=== PATIENT | female | born 1985 | race African-American/Black ===

== ENCOUNTER 2016-08-15 11:54 | Emergency (ER) | payer MEDICAID, OTHER ==
[~2016-08-15] VITALS: Ht 157.5 cm; Wt 65.9 kg
[~2016-08-15 11:54] MED LIST: IBUP-238 PO; MICRONOR PO; OXYC-360 PO; PRENTAB72 PO
[2016-08-15 11:56] VITALS: BP 141/96; PULSE 74; RESP 16; TEMP 97.6; O2SAT 100
[2016-08-15] MEDS ORDERED: ONDANSETRON ODT 4 MG TAB PO ONE (13:00)
[2016-08-15] MEDS ORDERED: diphenhydrAMINE HCL 25 MG CAP PO ONE (13:00)
--- NOTE | 2016-08-15 13:07 | PD ---
HPI Chief Complaint: Headache Time Seen by Provider: 13:00 Travel History International Travel<30 days: No Contact w/Intl Traveler<30days: No Traveled to known affect area: No History of Present Illness HPI 31-year-old female presents to the emergency department with 2 complaints. Her first complaint is headache 2 days. She says it all over. Reports it is a pounding sensation. Rates it 7/10. Has history of headaches and this is similar. Has tried Tylenol and ibuprofen with no relief. Aggravated by light. Denies phonophobia. Denies vomiting. Denies fever. Denies dysuria. Second complaint is low back pain 2 days. Has history of low back pain that is similar for the past 4 years. Denies injury. Denies straining or heavy lifting. Caprice, incontinence, saddle anesthesias. Denies IV drug use. Denies cancer. Denies fever, chills, nausea, vomiting. Denies paresthesias, loss of sensation, decreased range of motion, decreased strength to bilateral lower extremities. Has tried taking Tylenol and ibuprofen with no relief. Pain is aggravated with movement. Denies significant past medical history. No known allergies. No other modifying factors or associated signs and symptoms. PFSH Past Medical History Anemia: Yes Autoimmune Disease: No Blood Disorders: No Cancer: No Musculoskeletal: No Psychiatric: No Migraines: Yes PNEUMOCCOCAL Vaccine (Year): 2 ?: Not : 5 Para: 3 Miscarriage: 1 Social History Alcohol Use: No Tobacco Use: No Substance Use: No Allergies-Medications (Allergen,Severity, Reaction): Coded Allergies: No Known Allergies (Verified , 08/15/16) Reported Meds & Prescriptions Reported Meds & Active Scripts Active Pyridium (Phenazopyridine HCl) 100 Mg Tab 100 Mg PO Q8H PRN Ibuprofen 800 Mg Tab 800 Mg PO Q6HR PRN Keflex (Cephalexin) 500 Mg Cap 500 Mg PO Q12H 7 Days Reported [Micronor] 1 Tab PO DAILY Review of Systems Except as stated in HPI: all other systems reviewed are Neg Physical Exam Narrative GENERAL: Well-nourished, well-developed female patient, in no acute distress; sitting in a well lit room playing on her iPhone and talking to her friend SKIN: Warm and dry. HEAD: Atraumatic. Normocephalic. No facial droop noted. Tongue midline. EYES: Pupils equal and round at 3 mm with brisk reaction. No scleral icterus. No injection or drainage. PERRLA. EOMI. ENT: Mucosa pink and moist. Airway patent. NECK: Trachea midline. No lymphadenopathy. CARDIOVASCULAR: Regular rate and rhythm. No murmur appreciated. RESPIRATORY: No accessory muscle use. Clear to auscultation. Breath sounds equal bilaterally. GASTROINTESTINAL: Abdomen soft, non-tender, nondistended. Hepatic and splenic margins not palpable. Bowel sounds are active 4 quadrants. Bladder nontender and nondistended. MUSCULOSKELETAL: No obvious deformities. No clubbing. No cyanosis. No edema. BACK: No CVA tenderness NEUROLOGICAL: Awake and alert. Oriented 3. No obvious cranial nerve deficits. Motor grossly within normal limits. Normal speech. No ataxia. No mid -line drift. Moves all extremities. 5/5 strength to all extremities. PSYCHIATRIC: Appropriate mood and affect; insight and judgment normal. Data Data Last Documented VS Vital Signs Date Time Temp Pulse Resp B/P Pulse Ox O2 Delivery O2 Flow Rate FiO2 08/15/16 11:56 97.6 74 16 141/96 100 Room Air Orders Urinalysis - C+S If Indicated (08/15/16 13:00) Ketorolac Inj (Toradol Inj) (08/15/16 13:30) Ondansetron Odt (Zofran Odt) (08/15/16 13:00) Diphenhydramine (Benadryl) (08/15/16 13:00) Urine Culture (08/15/16 13:30) Labs Laboratory Tests Test 08/15/16 13:30 Urine Color YELLOW Urine Turbidity HAZY Urine pH 6.0 Urine Specific [place] 1.027 Urine Protein TRACE mg/dL Urine Glucose (UA) NEG mg/dL Urine Ketones NEG mg/dL Urine Occult Blood NEG Urine Nitrite NEG Urine Bilirubin NEG Urine Urobilinogen LESS THAN 2.0 MG/DL Urine Leukocyte Esterase LARGE Urine RBC 9 /hpf Urine WBC 27 /hpf Urine Squamous Epithelial 9 /hpf Cells Urine Bacteria MANY /hpf Urine Mucus MANY /lpf Microscopic Urinalysis Comment CULTURE INDICATED MDM Medical Decision Making Medical Screen Exam Complete: Yes Emergency Medical Condition: Yes Medical Record Reviewed: Yes Differential Diagnosis Acute headache, urinary tract infection, low back pain Narrative Course 31-year-old female with 2 complaints. First complaint is headache. She has history of headaches and this is consistent with her past headaches. Neuro exam is unremarkable. Her second complaint is low back pain. She has history of low back pain but symptoms are a little worse than normal. Toradol, Benadryl , Zofran administered in the ER. 1410: Urinalysis was signs of infection. Patient reports improvement in headache. Ibuprofen, Pyridium, Keflex prescribed for home. Patient is medically cleared and stable for discharge. Discussed reasons to return to the emergency department. Instructed patient to follow up with primary care provider. Patient agrees with treatment plan. The patients vital signs are stable and the patient is stable for outpatient follow-up and treatment. Patient discharged home, stable and in no acute distress. Diagnosis Primary Impression: Headache Qualified Code: R51 - Acute nonintractable headache, unspecified headache type Additional Impression: UTI (urinary tract infection) Qualified Code: N39.0 - Urinary tract infection without hematuria, site unspecified Referrals: Primary Care Physician Patient Instructions: Acute Headache (ED), General Instructions, Urinary Tract Infection in Women (ED) Departure Forms: Tests/Procedures, Work Release Enter return to work date: Aug 16, 2016 Additional Instructions: Ibuprofen or Tylenol as directed and as needed to reduce headache Get plenty of rest: do not over sleep rest and relax in a dark, quiet room as needed Place an ice pack on the back of her neck to reduce head pain as needed Keep a headache diary of what triggers her headaches and what treatment is most effective Avoid identifiable triggers Avoid smoking, alcohol and caffeine consumption Reduce stress Follow-up with primary care provider within 1-2 days Follow-up with neurology Return immediately to the emergency department with worsening symptoms Take antibiotics as prescribed and complete full course Take Pyridium for bladder spasms: Pyridium will turn your urine bright orange Drink plenty of fluids Maintain good personal hygiene Follow-up with primary care provider Return to the emergency department immediately with worsening of symptoms Med/Other Pt SpecificInfo: Prescription(s) given Scripts Phenazopyridine (Pyridium)100 Mg [id number] Mg PO Q8H PRN (DYSURIA) #20 TAB Ref 0 Prov:Allie Castellano HEEL VARNISHER 08/15/16 Ibuprofen 800 Mg [id number] Mg PO Q6HR PRN (PAIN) #30 TAB Ref 0 Prov:Allie Castellano HEEL VARNISHER 08/15/16 Cephalexin (Keflex)500 Mg [id number] Mg PO Q12H 7 Days Ref 0 Prov:Allie Castellano 08/15/16 Disposition: 01 DISCHARGE HOME Condition: Stable Allie Castellano Aug 15, 2016 13:07
[2016-08-15] MEDS ORDERED: KETOROLAC TROMETHAMINE 60 MG/2 ML (IM) VIAL IM ONE (13:30)
[2016-08-15 13:54] LABS: BACTERIA, URINE MANY /hpf; BLOOD, URINE NEG (NEG); COMMENT (UR) CULTURE INDICATED; CULTURE IF INDICATED CULTURE INDICATED; GLUCOSE,URINE NEG (NEG); KETONE, URINE NEG (NEG); MUCUS URINE MANY /lpf (OCC); NITRITE,URINE NEG (NEG); SQUAMOUS EPITHELIAL CELL URINE 9 /hpf (0-5); URINE COLOR YELLOW (YELLW/STRAW)
[2016-08-15] MEDS ORDERED: IBUP800T23 PO (14:06)
[2016-08-15] MEDS ORDERED: PHEN0.4T PO (14:06)
[2016-08-15] MEDS ORDERED: CEPH-460 PO (14:06)
== END 2016-08-15 14:38 | disposition home or self-care (01) ==
LOC: NEPB 11:54
DX: R51 Headache (principal); N39.0 Urinary tract infection, site not specified; D64.9 Anemia, unspecified
CPT/HCPCS: 81001; 87086; 96372; 99284; J1885

== ENCOUNTER 2016-09-15 15:16 | Emergency (ER) | payer MEDICAID ==
[~2016-09-15] VITALS: Ht 157.5 cm; Wt 70.0 kg
[~2016-09-15 15:16] MED LIST changes: +CEPH-460 PO; -IBUP-238 PO; +IBUP800T23 PO; -OXYC-360 PO; +PHEN0.4T PO; -PRENTAB72 PO
[2016-09-15 15:17] VITALS: BP 139/77; PULSE 70; RESP 14; TEMP 98.2; O2SAT 98
--- NOTE | 2016-09-15 15:56 | PD ---
HPI Chief Complaint: Cold / Flu Symptoms Time Seen by Provider: 15:53 Travel History International Travel<30 days: No Contact w/Intl Traveler<30days: No Traveled to known affect area: No History of Present Illness HPI Patient comes in complaining of sinus congestion headache ongoing for approximately 10 days. Patient states anytime her sinuses start acting up on her she gets headaches over frontal lobe like this. Patient denies anything making it better or worse. Patient states she's been drinking tea with honey with no improvement of her symptoms. Patient reports associated sore throat. Denies any fevers, nausea, vomiting, chest pain, cough, , abdominal pain, neck pain, or numbness or tingling anywhere. PFSH Past Medical History Anemia: Yes Autoimmune Disease: No Blood Disorders: No Cancer: No Musculoskeletal: No Psychiatric: No Migraines: Yes PNEUMOCCOCAL Vaccine (Year): 2 ?: Not LMP: DEPO : 5 Para: 3 Miscarriage: 1 Social History Alcohol Use: No Tobacco Use: No Substance Use: No Allergies-Medications (Allergen,Severity, Reaction): Coded Allergies: No Known Allergies (Verified , 08/15/16) Reported Meds & Prescriptions Reported Meds & Active Scripts Active Flonase Nasal [place] (Fluticasone Nasal [place]) 50 Mcg/Act [place] 100 Mcg EACH NARE DAILY Pyridium (Phenazopyridine HCl) 100 Mg Tab 100 Mg PO Q8H PRN Ibuprofen 800 Mg Tab 800 Mg PO Q6HR PRN Keflex (Cephalexin) 500 Mg Cap 500 Mg PO Q12H 7 Days Reported [Micronor] 1 Tab PO DAILY Review of Systems Except as stated in HPI: all other systems reviewed are Neg Physical Exam Narrative GENERAL: Well-developed, overly nourished, in no acute distress, and non-ill appearing. SKIN: Warm and dry. HEAD: Atraumatic. Normocephalic. EYES: Pupils equal and round. EOMI. No scleral icterus. No injection or drainage. ENT: No nasal bleeding or discharge. Mucous membranes pink and moist. Tympanic membranes are pearly nance bilaterally. Posterior pharynx erythematous without exudate. Uvula is midline. Patient reports tenderness to palpation or facial sinuses. NECK: Trachea midline. No cervical lymphadenopathy. Supple. No nuclear rigidity. CARDIOVASCULAR: Regular rate and rhythm. No murmur appreciated. RESPIRATORY: No accessory muscle use. No respiratory distress. Clear to auscultation. Breath sounds equal bilaterally. MUSCULOSKELETAL: No obvious deformities. No clubbing. No cyanosis. No edema. Full range of motion. NEUROLOGICAL: Awake and alert. No obvious cranial nerve deficits. Motor grossly within normal limits. Normal speech. PSYCHIATRIC: Appropriate mood and affect; insight and judgment normal. Data Data Last Documented VS Vital Signs Date Time Temp Pulse Resp B/P Pulse Ox O2 Delivery O2 Flow Rate FiO2 09/15/16 15:17 98.2 70 14 139/77 98 MDM Medical Decision Making Medical Screen Exam Complete: Yes Emergency Medical Condition: Yes Differential Diagnosis Allergic sinusitis, shows cyanosis, pharyngitis, upper respiratory infection, other Narrative Course Patient looks great, non-ill appearing. The patient is tolerating fluids and is well hydrated. Appears allergic sinusitis. No clinical evidence by history or evaluation to suspect infection, meningitis and/or sepsis. There was no evidence to suggest deep abscess or cavernous sinus involvement. I discussed with the patient, diagnosis, plan of care, medications and to follow up with the patients primary physician. The patient was instructed to return if the worsens in anyway, especially if not tolerating fluids, increased sinus pain or swelling, worsening headache, persistent fever, difficulty swallowing or breathing, or as needed. The patient agreed with plan. Patient in no obvious distress upon re-evaluation. Patient was asked if they wanted to speak to my attending, which the patient did not wish to do at this time. Any questions/concerns in reference to patient diagnosis/condition discussed and clarified prior to patient's discharge. Reinforced sheer importance of close follow up with patient's primary physician or primary care clinic. Instructed patient to return to ED immediately, if symptoms return/ worsen. Pt showed understanding of above instructions. Further instructions and recommendations were detailed in discharge paperwork. Pt ambulated without difficulty out of ED at discharge. Diagnosis Primary Impression: Sinusitis Qualified Code: J01.91 - Acute recurrent sinusitis, unspecified location Patient Instructions: General Instructions, Sinusitis (ED) Additional Instructions: Follow-up with your primary care physician and/or ENT in 3-5 days for reevaluation. Take all medication as prescribed. Use [id number] Claritin or Zyrtec or Benadryl for symptomatic relief. Follow instructions on the packaging. Return to the emergency department if symptoms get worse. Med/Other Pt SpecificInfo: Prescription(s) given Scripts Fluticasone Nasal [place] (Flonase Nasal [place])50 Mcg/Act [id number] Mcg EACH NARE DAILY #1 BOTTLE Ref 0 Prov:Terri Denise MD 09/15/16 Disposition: 01 DISCHARGE HOME Condition: Stable Neftaly Manley Sep 15, 2016 15:56
[2016-09-15] MEDS ORDERED: FLUT1SPR5 EACH NARE (15:57)
== END 2016-09-15 16:07 | disposition home or self-care (01) ==
LOC: NEPB 15:16
DX: J01.91 Acute recurrent sinusitis, unspecified (principal); Z86.2 Personal history of diseases of the blood and blood-forming organs and certain disorders involving the immune mechanism; Z86.69 Personal history of other diseases of the nervous system and sense organs
CPT/HCPCS: 99283

== ENCOUNTER 2016-11-11 20:32 | Emergency (ER) | payer MEDICAID ==
[~2016-11-11] VITALS: Ht 167.6 cm; Wt 70.0 kg
[~2016-11-11 20:32] MED LIST changes: +FLUT1SPR5 EACH NARE
[2016-11-11 20:35] VITALS: BP 131/92; PULSE 82; RESP 15; TEMP 99.1; O2SAT 100
[2016-11-11 21:37] VITALS: BP 131/82; PULSE 71; RESP 18; O2SAT 100
--- NOTE | 2016-11-11 22:32 | PD ---
HPI Chief Complaint: Chest Pain Time Seen by Provider: 21:57 Travel History International Travel<30 days: No Contact w/Intl Traveler<30days: No Traveled to known affect area: No History of Present Illness HPI The patient was seen and examined in the presence of the nurse. This patient complains of chest pain. Duration is 6 weeks. Location is center sternum. She gets one second sharp stabbing twinges. Reproducible with certain movements and also she reports she's been very anxious over the of 2 family members recently. Severity is mild. PFSH Past Medical History Anemia: Yes Autoimmune Disease: No Blood Disorders: No Cancer: No Musculoskeletal: No Psychiatric: No Immunizations Current: Yes Migraines: Yes Tetanus Vaccination: Unknown Influenza Vaccination: No PNEUMOCCOCAL Vaccine (Year): 2 ?: Not : 5 Para: 3 Miscarriage: 1 Social History Alcohol Use: No Tobacco Use: No Substance Use: No Allergies-Medications (Allergen,Severity, Reaction): Coded Allergies: No Known Allergies (Verified , 11/11/16) Reported Meds & Prescriptions Reported Meds & Active Scripts Active Review of Systems General / Constitutional: No: Fever Eyes: No: Drainage Cardiovascular: Positive: Chest Pain or Discomfort Respiratory: No: Cough Gastrointestinal: No: Vomiting Neurologic: No: Weakness Psychiatric: Positive: Anxiety Physical Exam Narrative GENERAL: Well-nourished, well-developed patient in no apparent distress. SKIN: Focused skin assessment reveals no rash and nodules. Skin is Warm and dry. HEAD: Atraumatic. Normocephalic. EYES: Pupils equal and round. No scleral icterus. No injection or drainage. ENT: No nasal bleeding or discharge. Mucous membranes pink and moist. NECK: Trachea midline. No JVD. CARDIOVASCULAR: Regular rate and rhythm. No murmur appreciated. RESPIRATORY: No accessory muscle use. Clear to auscultation. Breath sounds equal bilaterally. GASTROINTESTINAL: Abdomen soft, non-tender, nondistended. Hepatic and splenic margins not palpable. MUSCULOSKELETAL: No obvious deformities. No clubbing. No cyanosis. No edema. Does have some reproducible sternal tenderness NEUROLOGICAL: Awake and alert. No obvious cranial nerve deficits. Motor grossly within normal limits. Normal speech. PSYCHIATRIC: Appropriate mood and affect; insight and judgment normal. Data Data Last Documented VS Vital Signs Date Time Temp Pulse Resp B/P Pulse Ox O2 Delivery O2 Flow Rate FiO2 11/11/16 21:37 71 18 131/82 100 Room Air 11/11/16 20:35 99.1 MDM Medical Decision Making Medical Screen Exam Complete: Yes Emergency Medical Condition: Yes Medical Record Reviewed: Yes Differential Diagnosis Differential diagnosis includes OH, angina, pericarditis, pleurisy, GERD, anxiety. Narrative Course I have reviewed the patient's electronic medical record. I reviewed her EKG which is normal Her exam is normal She does not have any cardiac risk factors Her chest pain is readily reproducible sternal palpation suggesting musculoskeletal source She really doesn't seem anxious at all to me but that could be related Stable for outpatient follow-up Diagnosis Primary Impression: Musculoskeletal chest pain Additional Instructions: The patient was advised to follow up with their physician and return if they worsen. Med/Other Pt SpecificInfo: Other Disposition: 01 DISCHARGE HOME Condition: Stable Rodger Montana MD Nov 11, 2016 22:32
--- NOTE | 2016-11-12 13:18 | EKG ---
Date Performed: 11/11/2016 Time Performed: 22:02:53 PTAGE: 31 years EKG: Sinus rhythm NORMAL ECG NO PREVIOUS TRACING DOCTOR: Luke Luna Interpretating Date/Time 11/12/2016 13:16:44
== END 2016-11-11 22:49 | disposition home or self-care (01) ==
LOC: NEPD 20:32
DX: R07.89 Other chest pain (principal)
CPT/HCPCS: 93005